=== PATIENT | male | born 1955 | race Caucasian/White ===

== ENCOUNTER 2020-09-09 12:06 | Emergency (ER) | payer OTHER ==
[~2020-09-09] VITALS: Ht 180.3 cm; Wt 111.1 kg
[2020-09-09 14:29] VITALS: BP 158/93
== END 2020-09-09 14:41 | disposition home or self-care (01) ==
LOC: ER 12:35
DX: G50.0 Trigeminal neuralgia (principal); K21.9 Gastro-esophageal reflux disease without esophagitis
CPT/HCPCS: 70450; 70486; 99283

== ENCOUNTER 2024-12-04 09:31 | Emergency (ER) | payer MEDICARE ==
[~2024-12-04] VITALS: Ht 180.3 cm; Wt 111.1 kg
[2024-12-04 09:35] VITALS: PULSE 82; RESP 18; TEMP 98.9; O2SAT 98
[2024-12-04] MEDS ORDERED: CARBAMAZEPINE200 MG PO (09:47)
== END 2024-12-04 09:56 | disposition home or self-care (01) ==
LOC: ER 09:33
DX: G50.0 Trigeminal neuralgia (principal); K21.9 Gastro-esophageal reflux disease without esophagitis
CPT/HCPCS: 99283